=== PATIENT | female | born 1940 | race Caucasian/White ===

== ENCOUNTER 2019-07-23 05:51 | Emergency (ER) | payer OTHER, BC ==
[2019-07-23 06:02] VITALS: TEMP 98; BMI 24.4
[2019-07-23] MEDS ORDERED: ACETAMINOPHEN 1000 MG/100 ML VIAL (NON FORMULARY) IVPB ONE (07:21)
[2019-07-23] MEDS ORDERED: SODIUM CHLORIDE 500 ML IV STA (07:22)
[2019-07-23] MEDS ORDERED: ACETAMINOPHEN INJECTION 100 ML IVPB ONE (07:31)
--- NOTE | 2019-07-23 07:44 | PDOC ---
History of Present Illness - General Chief Complaint: Pain, Acute Stated Complaint: L FLANK PAIN Time Seen by Provider: 07/23/19 07:12 History Source: Patient Exam Limitations: Clinical Condition - History of Present Illness Initial Comments: 07/23/19 07:39 Patient with past medical history of hypertension and hyperlipidemia presented with complaint of 3-day history of epigastric and left upper quadrant pain radiating to left flank area which has been persistent for the past 3 days. Patient described pain as sharp cramping pain. Denies nausea, vomiting, fever, chills, diarrhea, constipation. Denies urinary frequency, dysuria or hematuria. Denies chest pain, shortness of breath, palpitation, dizziness or weakness. Denies any other symptoms. Patient did not take anything for symptoms. Nothing makes the pain better or worse Is this a multiple visit Asthma Patient?: No Timing/Duration: other (3 days) Past History - Past Medical History Allergies/Adverse Reactions: Allergies Allergy/AdvReac Type Severity Reaction Status Date / Time Penicillins Allergy Verified 07/23/19 06:00 Home Medications: Ambulatory Orders Ascorbate Calcium [Vitamin C] 500 mg PO DAILY 12/18/15 Aspirin Coated [Ecotrin -] 81 mg PO DAILY 12/18/15 Calcium Carbonate [Calcium] 500 mg PO DAILY 12/18/15 Cholecalciferol (Vitamin D3) [Vitamin D3] 2,000 unit PO DAILY 12/18/15 Metoprolol Succinate [Toprol Xl -] 25 mg PO DAILY 12/18/15 [place]-3 Fatty Acids/Fish Oil [Fish Oil 1,000 mg Softgel] 1 each PO DAILY 12/18/15 Pravastatin Sodium [Pravachol (Nf)] 20 mg PO HS 12/18/15 Tamsulosin HCl [Flomax] 0.4 mg PO DAILY #7 capsule 07/23/19 COPD: No GI Disorders: No Disorders: No HTN: Yes Hypercholesterolemia: Yes Liver Disease: No Thyroid Disease: No - Surgical History Neurologic Surgery: Yes (LAMINECTOMY WITH BONE GRAFT) - Psycho Social/Smoking Cessation Hx Smoking History: Never smoked Have you smoked in the past 12 months: No If you are a former smoker, when did you quit?: 20yrs ago Hx Alcohol Use: Yes (occ) Drug/Substance Use Hx: No Substance Use Type: Alcohol Review of Systems - Review of Systems Able to Perform ROS?: Yes Is the patient limited Kiswahili proficient: No Constitutional: No: Chills, Fever, Malaise HEENTM: No: Symptoms Reported, See HPI, Eye Pain, Blurred Vision, Tearing, Recent change in vision, Double Vision, Cataracts, Ear Pain, Ocular Prothesis, Ear Discharge, Nose Pain, Nose Congestion, Tinnitus, Nose Bleeding, Hearing Loss, Throat Pain, Throat Swelling, Mouth Pain, Dental Problems, Difficulty Swallowing, Mouth Swelling, Other Respiratory: No: Symptoms reported, See HPI, Cough, Orthopnea, Shortness of Breath, SOB with Exertion, SOB at Rest, Stridor, Wheezing, Productive cough, Hemoptysis, Other Cardiac (ROS): No: Symptoms Reported, See HPI, Chest Pain, Edema, Irregular Heart Rate, Lightheadedness, Palpitations, Syncope, Chest Tightness, Other ABD/GI: Yes: Symptoms Reported, See HPI, Abdominal cramping (epigastric and LUQ pain). No: Abdominal Distended, Abd. Pain w/ defecation, Blood Streaked Bowels, Constipated, Diarrhea, Difficulty Swallowing, Nausea, Poor Appetite, Poor Fluid Intake, Rectal Bleeding, Vomiting, Indigestion : Yes: Symptoms Reported, See HPI, Flank Pain (left flank pain). No: Burning, Dysuria, Discharge, Frequency, Hematuria, Incontinence, Urgency Musculoskeletal: No: Symptoms Reported, See HPI, Back Pain All Other Systems: Reviewed and Negative *Physical Exam - Vital Signs Last Vital Signs Temp Pulse Resp BP Pulse Ox 98.0 F 69 18 159/55 L 97 07/23/19 05:56 07/23/19 05:56 07/23/19 05:56 07/23/19 05:56 07/23/19 05:56 - Physical Exam General Appearance: Yes: Nourished, Appropriately Dressed. No: Apparent Distress HEENT: positive: [place], Normal ENT Inspection, Pharynx Normal Neck: positive: Supple Respiratory/Chest: positive: Lungs Clear, Normal Breath Sounds. negative: Chest Tender, Respiratory Distress, Accessory Muscle Use Cardiovascular: positive: Regular Rhythm, Regular Rate. negative: Murmur Gastrointestinal/Abdominal: positive: Normal Bowel Sounds, Tender (mild epigastric and LUQ tenderness), Flat, Soft, Other (mild tenderness to left flank area). negative: Organomegaly, Increased Bowel Sounds, Protuberent, Distended, Guarding, Rebound, Hepatomegaly, Spleenomegaly Musculoskeletal: positive: Normal Inspection. negative: CVA Tenderness Extremity: positive: Normal Inspection, Normal Range of Motion Integumentary: positive: Normal Color Neurologic: positive: manager technical training II-XII NML intact, Fully Oriented, Alert, Normal Mood/Affect, Normal Response, Motor Strength 09/10 ED Treatment Course - LABORATORY CBC & Chemistry Diagram: 07/23/19 07:30 07/23/19 07:30 Medical Decision Making - Medical Decision Making 07/23/19 07:40 Patient with past medical history of hypertension and hyperlipidemia presented with complaint of 3-day history of epigastric and left upper quadrant pain radiating to left flank area which has been persistent for the past 3 days. Patient described pain as sharp cramping pain. Denies nausea, vomiting, fever, chills, diarrhea, constipation. Denies urinary frequency, dysuria or hematuria. Denies chest pain, shortness of breath, palpitation, dizziness or weakness. D enies any other symptoms. Patient did not take anything for symptoms. Nothing makes the pain better or worse Exam significant for mild epigastric, left upper quadrant and left flank pain without guarding or rebound. Normal cardio and lung exam. Patient in no acute distress and afebrile. Patient symptoms likely cholelithiasis versus kidney stone versus cystitis. UA, urine culture lab ordered. CBC, CMP and lipase lab ordered. Spiral CT of abdomen ordered to rule out kidney stone. Tylenol 1 g IV ordered for pain and IV hydration with 500 mL normal saline ordered. Reassess after labs and imaging 07/23/19 08:[address] shows 1 mm nonobstructing stone which is likely the cause of patient's pain. Patient also had multiple gallstone with no evidence of cholecystitis. Patient reported improvement in pain with Tylenol. Patient stable for discharge on p.o. Toradol PRN for pain and Flomax for kidney stone with urology follow-up Discharge - Discharge Information Problems reviewed: Yes Clinical Impression/Diagnosis: Kidney stone on left side Gallstone Qualifiers: Cholecystitis presence: without cholecystitis Biliary obstruction: without biliary obstruction Qualified Code(s): K80.20 - Calculus of gallbladder without cholecystitis without obstruction Condition: Improved Disposition: HOME - Admission No - Additional Discharge Information Prescriptions: Tamsulosin HCl [Flomax] 0.4 mg PO DAILY #7 capsule - Follow up/Referral Referrals: Peng Torres MD [Staff Physician] - Rajinder Claros MD [Staff Physician] - Rosmery Arce MD [Primary Care Provider] - - Patient Discharge Instructions Patient Printed Discharge Instructions: DI for Kidney Stones Additional Instructions: Your blood work is normal. Your abdominal CAT scan shows small nonobstructing kidney stone which is likely the cause of your pain. Take prescribed Flomax to help with kidney stone. You can take Tylenol or Motrin as needed for pain. Follow-up referred urologist. Your CAT scan also shows small gallstones . You were given to urology providers and you can follow-up which ever give you earlier appointment. Come back to emergency room if fever, worsening pain, persistent vomiting. - Post Discharge Activity
[2019-07-23 07:53] LABS: BASO % 0.7 % (0-2.0); EOS % 0.9 % (0-4.5); HEMATOCRIT 43.5 % (32.4-45.2); HEMOGLOBIN 14.9 GM/dL (10.7-15.3); LYMPH % 25.9 % (8-40); MCHC 34.1 g/dl (32.0-36.0); MEAN CELL VOLUME 93.6 fl (80-96); MEAN PLT VOLUME 7.7 fl (7.5-11.1); NEUT % 58.5 % (42.8-82.8); PLATELET COUNT 235 K/MM3 (134-434); RBC 4.65 M/mm3 (3.60-5.2); RDW 12.9 % (11.6-15.6); WHITE BLOOD COUNT 4.8 K/mm3 (4.0-10.0)
[2019-07-23 08:13] LABS: ALBUMIN 3.6 g/dl (3.4-5.0); BILIRUBIN,TOTAL 0.3 mg/dL (0.2-1); BLOOD UREA NITROGEN 7.7 mg/dL (7-18); CALCIUM 9.5 mg/dL (8.5-10.1); CREATININE 0.8 mg/dL (0.55-1.3); POTASSIUM 3.9 mmol/L (3.5-5.1); TOT PROT 6.8 g/dl (6.4-8.2); URINE APPEARANCE CLOUDY; URINE BILIRUBIN NEGATIVE (NEGATIVE); URINE COLOR YELLOW; URINE GLUCOSE (UA) NEGATIVE (NEGATIVE); URINE KETONE NEGATIVE (NEGATIVE); URINE LEUK ESTERASE NEGATIVE (NEGATIVE); URINE NITRITE NEGATIVE (NEGATIVE); URINE PROTEIN TRACE (NEGATIVE); URINE UROBILINOGEN 0.2 mg/dL (0.2-1.0)
[2019-07-23 09:19] VITALS: BP 130/50; PULSE 54
== END 2019-07-23 09:20 | disposition home or self-care (01) ==
LOC: JER 05:51
PROC: 3E0337Z Introduction of Electrolytic and Water Balance Substance into Peripheral Vein, Percutaneous Approach (ICD-10-PCS; principal; 2019-07-23)
PROC: 3E033NZ Introduction of Analgesics, Hypnotics, Sedatives into Peripheral Vein, Percutaneous Approach (ICD-10-PCS; 2019-07-23)
DX: N20.0 Calculus of kidney (principal); K80.20 Calculus of gallbladder without cholecystitis without obstruction; I10 Essential (primary) hypertension; E78.5 Hyperlipidemia, unspecified
CPT/HCPCS: 36415; 74176-TC; 80053; 81003; 83690; 85025; 87086; 96361; 96374; 99285-25; J0131

== ENCOUNTER 2020-07-03 04:22 | Day surgery (SDC) | payer OTHER, BC ==
[2020-07-02 07:36] VITALS: BMI 24.2
[2020-07-03] MEDS ORDERED: DEXAMETHASONE SOD PHOSPHATE 4 MG/1 ML VIAL ONE (07:14)
[2020-07-03] MEDS ORDERED: LIDOCAINE HCL/PF 2% SDV 5ML VIAL ONE (07:14)
[2020-07-03] MEDS ORDERED: MIDAZOLAM HCL 2 MG/2 ML SINGLE DOSE VIAL ONE (07:15)
[2020-07-03] MEDS ORDERED: PROPOFOL 20 ML ONE (07:15)
[2020-07-03] MEDS ORDERED: IOHEXOL 180 MG/1 ML ML IJ ONE (07:51)
[2020-07-03] MEDS ORDERED: EPHEDRINE SULFATE/0.9% NACL/PF 50 MG/10 ML SYRINGE NR ONE (07:53)
[2020-07-03] MEDS ORDERED: GENTAMICIN SO4 80 MG/2 ML VIAL ONE (07:57)
[2020-07-03] MEDS ORDERED: ceFAZolin SODIUM 1 GM VIAL ONE (07:57)
[2020-07-03] MEDS ORDERED: oxyCODONE HCL 5 MG TABLET PO PRN (08:25)
[2020-07-03] MEDS ORDERED: ELECTROLYTE-148 SOLN 1,000 ML IV SCH (08:30)
[2020-07-03] MEDS ORDERED: ONDANSETRON 4 MG/2 ML VIAL IVPUSH PRN (08:55)
[2020-07-03] MEDS ORDERED: LACTATED RINGERS SOLUTION 1,000 ML IV SCH (09:00)
[2020-07-03 11:17] VITALS: BP 168/70; PULSE 68; TEMP 98.1
== END 2020-07-03 11:05 | disposition home or self-care (01) ==
LOC: JASU-SURG 04:22
PROVIDERS: ATTEND Urology
PROC: 0T778DZ Dilation of Left Ureter with Intraluminal Device, Via Natural or Artificial Opening Endoscopic (ICD-10-PCS; principal; 2020-07-03 07:30)
PROC: 0T748DZ Dilation of Left Kidney Pelvis with Intraluminal Device, Via Natural or Artificial Opening Endoscopic (ICD-10-PCS; 2020-07-03 07:30)
DX: N20.0 Calculus of kidney (principal); N13.5 Crossing vessel and stricture of ureter without hydronephrosis
CPT/HCPCS: 76000-TC-FY; 94760

== ENCOUNTER 2020-07-24 05:18 | Day surgery (SDC) | payer OTHER, BC ==
[2020-07-23 09:36] VITALS: BMI 24.2
[2020-07-24] MEDS ORDERED: ceFAZolin SODIUM 1 GM VIAL IVPB ONE (09:15)
[2020-07-24] MEDS ORDERED: MIDAZOLAM HCL 2 MG/2 ML SINGLE DOSE VIAL ONE (09:18)
[2020-07-24] MEDS ORDERED: SUCCINYLCHOLINE CHLORIDE 200 MG/10 ML SYRINGE ONE (09:18)
[2020-07-24] MEDS ORDERED: PROPOFOL 20 ML ONE (09:18)
[2020-07-24] MEDS ORDERED: GENTAMICIN 80MG PREMIX BAG IVPB ONE (09:20)
[2020-07-24] MEDS ORDERED: GENTAMICIN SO4 80 MG/2 ML VIAL ONE (09:27)
[2020-07-24] MEDS ORDERED: ceFAZolin SODIUM 1 GM VIAL ONE (09:27)
[2020-07-24] MEDS ORDERED: EPHEDRINE SULFATE/0.9% NACL/PF 50 MG/10 ML SYRINGE NR ONE (09:33)
[2020-07-24] MEDS ORDERED: FUROSEMIDE 40 MG/4 ML INJECTABLE VIAL ONE (09:44)
[2020-07-24] MEDS ORDERED: oxyCODONE HCL 5 MG TABLET PO PRN (10:09)
[2020-07-24] MEDS ORDERED: DEXTROSE 5%-0.45% SALINE 1,000 ML IV SCH (10:15)
[2020-07-24] MEDS ORDERED: ONDANSETRON 4 MG/2 ML VIAL IVPUSH PRN (10:36)
[2020-07-24] MEDS ORDERED: LACTATED RINGERS SOLUTION 1,000 ML IV SCH (10:45)
[2020-07-24 16:52] VITALS: BP 100/55; PULSE 50; TEMP 98.2
== END 2020-07-24 13:00 | disposition home or self-care (01) ==
LOC: JASU-SURG 05:18
PROVIDERS: ATTEND Urology
PROC: 0TC48ZZ Extirpation of Matter from Left Kidney Pelvis, Via Natural or Artificial Opening Endoscopic (ICD-10-PCS; principal; 2020-07-24 09:00)
PROC: 0T778DZ Dilation of Left Ureter with Intraluminal Device, Via Natural or Artificial Opening Endoscopic (ICD-10-PCS; 2020-07-24 09:00)
DX: N20.0 Calculus of kidney (principal)
CPT/HCPCS: 36415; 76000-TC-FY; 82360; 94760

== ENCOUNTER 2021-05-06 12:03 | Emergency (ER) | payer OTHER, BC ==
[2021-05-06 12:33] VITALS: BP 147/60; PULSE 98; TEMP 99.3; BMI 23.4
[2021-05-08 16:11] LABS: SARS-CoV-2 NAA Not Detected (Not Detected)
== END 2021-05-06 14:00 | disposition home or self-care (01) ==
LOC: JER 12:03
DX: J02.9 Acute pharyngitis, unspecified (principal); R05.1 Acute cough
CPT/HCPCS: 87804; 99283-25; C9803; U0003; U0005

== ENCOUNTER 2025-03-03 10:57 | Emergency (ER) | payer OTHER, BC ==
[2025-03-03 11:04] VITALS: BP 143/92; PULSE 68; RESP 18; TEMP 97.9; BMI 24.2
[2025-03-03] MEDS ORDERED: ACETAMINOPHEN 325 MG TABLET (FP) ONE (11:52)
[2025-03-03] MEDS: ACETAMINOPHEN 325 MG TABLET (FP) PO ONE (11:59)
== END 2025-03-03 13:05 | disposition home or self-care (01) ==
LOC: JER 10:57
DX: S00.83XA Contusion of other part of head, initial encounter (principal); S80.211A Abrasion, right knee, initial encounter; S80.212A Abrasion, left knee, initial encounter; M25.471 Effusion, right ankle; W10.9XXA Fall (on) (from) unspecified stairs and steps, initial encounter; Y93.01 Activity, walking, marching and hiking
CPT/HCPCS: 70450-TC; 72125-TC; 73564-TC-LT-FY; 73564-TC-RT-FY; 99284-25